=== PATIENT | female | born 1955 | race Hispanic/Latino ===

== ENCOUNTER 2017-02-19 12:33 | Emergency (ER) | payer OTHER ==
[~2017-02-19] VITALS: Ht 315 cm; Wt 70.3 kg
[2017-02-19] MEDS ORDERED: ASPIRIN 325 MG TAB PO STA (12:45)
--- NOTE | 2017-02-19 13:20 | Diagnostic Imaging Report ---
EXAMINATION: Head CT HISTORY: Confusion, left-sided weakness COMPARISON: None available TECHNIQUE: Multidetector axial images were obtained without contrast from the foramen magnum to the vertex . The images were reconstructed using brain and bone algorithms. Thin section brain images were reformatted into coronal and sagittal planes. Intravenous contrast: None. Motion/streaking artifact limits the evaluation of the skull base and posterior cranial fossa. FINDINGS: Parenchyma: 1. No abnormal densities. 2. No mass or hemorrhage. No CT evidence of acute territorial vascular insult. Extra-axial spaces:No abnormal density. No extra-axial fluid collections Brain volume: Normal for age. Ventricles: No hydrocephalus or displacement. Arteries: Questionable hyperdensity of the right cavernous/supraclinoid ICA and compared to the left side. Dural sinuses: No abnormal density. Extra-axial spaces: No abnormal density. Foramen magnum: No mass, Chiari malformation, or basilar invagination. Sella: No obvious mass. Paranasal/mastoid sinuses: Imaged portions unremarkable. Skull/Scalp: No lytic or blastic lesions. No fractures. IMPRESSION: 1. No intracranial hemorrhage or CT evidence of acute territorial cortical vascular insult. 2. Questionable hyperdensity of the right cavernous/supraclinoid ICA, if clinical concern for thrombosis/occlusion consider CT angiogram of the head and neck with contrast for further evaluation. Signed by: Dr. Rachel Crawley M.D. on 02/19/2017 1:17 PM
--- NOTE | 2017-02-19 13:22 | Diagnostic Imaging Report ---
PROCEDURE: Frontal and lateral views of the chest. COMPARISON: None. INDICATIONS: LEFT SIDE WEAKNESS, CONFUSION FINDINGS: Lines/tubes: None. Lungs: The lungs are well inflated and clear. There is no evidence of pneumonia or pulmonary edema. Pleura: There is no pleural effusion or pneumothorax. Heart and mediastinum: The heart and the mediastinum are normal. Bones: No acute bony abnormality. Right upper quadrant clips, likely related to cholecystectomy. IMPRESSION: 1. No acute cardiopulmonary disease. Dictated by: Andrea Crespo M.D. on 02/19/2017 at 13:30 Electronically approved by: Andrea Crespo M.D. on 02/19/2017 at 13:30
[2017-02-19 14:05] LABS: BILIRUBIN,URINE NEGATIVE (NEGATIVE); CLARITY,URINE CLEAR (CLEAR); COLOR,URINE YELLOW (YELLOW); KETONES,URINE NEGATIVE (NEGATIVE); LEUKOCYTE ESTERASE ,URINE NEGATIVE (NEGATIVE); NITRITE,URINE NEGATIVE (NEGATIVE); PROTEIN,URINE DIPSTICK NEGATIVE (NEGATIVE); URINE UROBILINOGEN 0.2 mg/dL (0.2 - 1)
[2017-02-19 16:12] LABS: BASOPHILS # (AUTO) 0.1 (0.0-0.1); BASOPHILS % 0.6 % (0.0-1.0); EOSINOPHILS # (AUTO) 0.2 (0.0-0.4); EOSINOPHILS % 2.7 % (0.0-6.0); HEMATOCRIT 41.6 % (34.2-44.1); HEMOGLOBIN 13.5 g/dL (12.0-16.0); LYMPHOCYTES # (AUTO) 2.9 (1.0-3.2); LYMPHOCYTES % 35.3 % (18.0-39.1); MEAN CORPUSCULAR HEMOGLOBIN 30.4 pg (28-32); MEAN CORPUSCULAR HGB CONC 32.5 g/dL (31-35); MEAN CORPUSCULAR VOLUME 93.7 fL (81-99); MONOCYTES # (AUTO) 0.6 (0.2-0.8); MONOCYTES % 6.7 % (4.4-11.3); NEUTROPHILS # (AUTO) 4.4 (2.1-6.9); NEUTROPHILS % 54.5 % (38.7-80.0); PLATELET COUNT 287 x10e3/uL (140-360); RED BLOOD COUNT 4.44 x10e6/uL (3.6-5.1); RED CELL DISTRIBUTION WIDTH 12.5 % (11.7-14.4)
[2017-02-19 16:20] LABS: INR 0.92; PROTHROMBIN TIME 12.8 seconds (11.9-14.5)
[2017-02-19 16:21] LABS: PARTIAL THROMBOPLASTIN TIME 26.9 seconds (23.8-35.5)
[2017-02-19 16:27] LABS: ALANINE AMINOTRANSFERASE 31 IU/L (0-55); ALBUMIN 3.9 g/dL (3.5-5.0); ALKALINE PHOSPHATASE 61 IU/L (40-150); ANION GAP 10.8 mmol/L (8-16); BLOOD UREA NITROGEN 10 mg/dL (7-26); BUN/CREATININE RATIO 14 (6-25); CALCIUM 9.4 mg/dL (8.4-10.2); CARBON DIOXIDE 28 mmol/L (22-29); CHLORIDE 104 mmol/L (98-107); CREATININE, SERUM 0.73 mg/dL (0.57-1.11); EST GLOMERULAR FILTRATION RATE > 60 ML/MIN (60-); GLUCOSE 101 mg/dL (74-118); POTASSIUM 3.8 mmol/L (3.5-5.1); SODIUM 139 mmol/L (136-145)
[2017-02-19] MEDS ORDERED: SODIUM CHLORIDE FLUSH 10 ML SYR INJ PRN (18:00)
[2017-02-19 19:07] LABS: CHOL/HDL RATIO 4.8 (3.0-3.6)
[2017-02-19 19:27] LABS: THYROID STIMULATING HORMONE 0.457 uIU/mL (0.350-4.940)
--- NOTE | 2017-02-19 20:24 | History and Physical ---
Primary care physician: None. CHIEF COMPLAINT: Left-sided numbness and weakness. 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 She eventually went to [facility] on when it occurred, but due to waiting more than 12 hours and not being seen, the patient left. Now, symptoms remained which is why she came here. CT scan of the brain is negative. She is admitted for further evaluation and management. She does take a baby aspirin every day but no other medications. PAST MEDICAL HISTORY: Atypical chest pain with negative stress testing. 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 PAST SURGICAL HISTORY: Tubal ligation and cholecystectomy. ALLERGIES: PER ELECTRONIC MEDICAL RECORDS. FAMILY HISTORY/SOCIAL HISTORY: The patient is . She has 5 children. No alcohol, illicits or cigarettes. 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. MEDICATIONS: Aspirin 81 mg daily. REVIEW OF SYSTEMS: Denies any dizziness or chest pain. PHYSICAL EXAMINATION VITAL SIGNS: Reviewed. GENERAL APPEARANCE: A tired-appearing woman resting in the bed. HEENT: Anicteric. Pupils responsive to light. No oral lesions. CARDIOVASCULAR: Normal S1 and S2. LUNGS: Moderate breath sounds, ABDOMEN: Soft and nontender. Nondistended. EXTREMITIES: There is no edema or calf tenderness. NEUROLOGIC: Alert and oriented x3. Moving all extremities. Motor strength 5/5 in all extremities. No visual field deficits in either eye. There is some facial asymmetry but may be chronic. She has what appears to be mild injection of the left eye. Moderately visualized tympanic membrane at this time due to no other scope being available. There are no sensory or deficit changes on the left side of the cheek compared to the right side. Tongue movement is normal. Gait is normal. LABS: Reviewed. MEDICATIONS: Reviewed. ASSESSMENT AND PLAN: This is a 61-year-old woman with: 1. Transient ischemic attack. Will obtain MRI of the head and neck. Consider obtaining a 2D echocardiogram. Will obtain a sed rate. 2. Rule out hypercholesterolemia. Will obtain a lipid panel. 3. Left-sided weakness. Physical therapy consultation. 4. Right facial paresthesia. Will follow up MRI. 5. Prophylaxis: Use Lovenox and Pepcid. DISPOSITION: Obtain MRI of the head and neck. Could be Peters's palsy, unclear at this time as symptoms are very mild. Job#: [id number]
[2017-02-19] MEDS ORDERED: ACETAMINOPHEN 325 MG TAB ONE (21:51)
[2017-02-19] MEDS ORDERED: ACETAMINOPHEN 325 MG TAB PO ONE (22:00)
[2017-02-20] MEDS ORDERED: ACETAMINOPHEN 325 MG TAB PO ONE (02:15)
[2017-02-20] MEDS ORDERED: ASPIRIN325 MG PO (06:29)
[2017-02-20] MEDS ORDERED: SIMVASTATIN20 MG PO (06:29)
[2017-02-20] MEDS ORDERED: PRAVASTATIN SOD20 MG PO (06:30)
[2017-02-20] MEDS ORDERED: FAMOTIDINE 20 MG TAB PO SCH (07:30)
--- NOTE | 2017-02-20 07:32 | Progress Note ---
DATE: February 20, 2017 TIME: 6:25 a.m. OVERNIGHT: No events. REVIEW OF SYSTEMS: Denies any dizziness. PHYSICAL EXAMINATION: VITAL SIGNS: Reviewed. GENERAL APPEARANCE: Tired-appearing woman resting in bed. HEENT: Anicteric. CARDIOVASCULAR: Normal S1 and S2. LUNGS: Moderate breath sounds. ABDOMEN: Soft, nontender, nondistended. EXTREMITIES: No edema or calf tenderness. NEUROLOGICAL: Alert and oriented x3. Moves all extremities. She has 5/5 motor strength in all extremities. SKIN: Dry. PSYCHIATRIC: Normal affect. LABS: Reviewed. MEDICATIONS: Reviewed. ASSESSMENT AND PLAN: This is a 61-year-old woman: 1. Transient ischemic attack. Follow up magnetic resonance imaging of the head and neck this morning. LDL was 109 and triglycerides 207, hemoglobin A1c 5.9. She does have prediabetes. We will continue aspirin and use low-dose statin. 2. Prediabetes. Hemoglobin A1c is 5.9. She needs caloric restriction, diet, and exercise. Recheck in 3 months. 3. Elevated sedimentation rate. 4. Left-sided weakness. Physical therapy consulted. Follow up magnetic resonance imaging. 5. Right facial paresthesia. 6. Prophylaxis. Lovenox and Pepcid. 7. Disposition. Follow up magnetic resonance imaging. If negative, will transition home, and will need close followup outpatient. Job#: [id number]
[2017-02-20] MEDS ORDERED: ASPIRIN 325 MG TAB PO SCH (09:00)
--- NOTE | 2017-02-20 10:43 | Diagnostic Imaging Report ---
Examination: MRI BRAIN WITHOUT CONTRAST History: 61-year-old female with dizziness and left-sided weakness. Comparison studies: Head CT performed February 19, 2017 Technique: Sagittal T2; axial DWI, FLAIR, GRE or SWI, T1, Coronal FLAIR. Intravenous contrast: None Findings: Scalp: No abnormal signal. No masses. Bone marrow: Normal in signal intensity. Brain volume: Adequate for age. No volume loss. Ventricles: Normal in size and configuration. No hydrocephalus. Extra-axial spaces: No abnormalities. Parenchyma: No masses, hemorrhage, or acute or chronic vascular insults. Suprasellar and sellar region: No abnormalities. Craniocervical junction: No abnormalities. The foramen magnum is patent. No Chiari malformations. Vessels: Normal flow-voids in the arteries and sinuses. Additional findings:None. IMPRESSION: No intracranial abnormalities, specifically, no acute infarct. Signed by: Dr. Carina Gilman M.D. on 02/20/2017 10:40 AM
--- NOTE | 2017-02-20 10:55 | Diagnostic Imaging Report ---
Examination: MRA HEAD AND NECK WITHOUT CONTRAST History: Dizziness. Left-sided weakness. Comparison studies: None Technique: 2-D and 3-D [id number] MR angiograms of the cervical and intracranial circulations were obtained. MIP images of the arteries were isolated into the right and left cervical circulations and anterior and posterior intracranial circulations, 180 degree projections. Sagittal and coronal MPR images, and axial source images are available for evaluation. Degree of stenosis at the carotid bulbs, if present, will be calculated using NASCET criteria where the smallest diameter at the location of stenosis is compared to the diameter of the more distal non-diseased vessel lumen. Findings: Cervical MRA Aortic arch: Normal 3 great vessel origin. Patent. Internal carotid arteries: No flow abnormalities at the origins of the common carotid arteries, the cervical carotid bifurcations or in the cervical segments. Vertebral arteries: No flow abnormalities at the origins of the vertebral arteries or through its cervical segments (V1-V3). Intracranial MRA: Internal carotid arteries: Patent. Anterior cerebral arteries: Patent A1 segments. Middle cerebral arteries: Patent M1 segments. 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 Vertebrobasilar circulation: Patent. Posterior cerebral arteries: Patent bilaterally. Anatomical variants: Anterior communicating arteries: Patent. Posterior communicating arteries: Patent on the right. Not visualized on the left. Vertebral arteries:Codominant. IMPRESSION: 1. No cervical or intracranial arterial stenosis or occlusion. 2. 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 However, given imaging characteristics, an arteriovenous malformation cannot be excluded. Therefore, a conventional angiogram may be obtained for definitive diagnosis. Signed by: Dr. Carina Gilman M.D. on 02/20/2017 10:52 AM
[2017-02-20] MEDS ORDERED: ENOXAPARIN SOD INJ 40 MG/0.4 ML SYR SC SCH (17:00)
[2017-02-20] MEDS ORDERED: SIMVASTATIN 20 MG TAB PO SCH (21:00)
== END 2017-02-20 13:54 | disposition home or self-care (01) ==
LOC: ER 12:33 → UNDOADMOB 18:07 → ERHOLD 18:07 → ER 02-20 13:54
DX: R53.1 Weakness (principal); G45.9 Transient cerebral ischemic attack, unspecified
CPT/HCPCS: 36415; 70450; 70544; 70547; 70551; 71020; 80053; 80061; 81001; 83036; 84443; 85025; 85610; 85651; 85730; 93005; 93880; 97116; 97161; 99284; G8978; G8979; G8980